=== PATIENT | male | born 1985 | race American Indian/Alaskan Native ===

== ENCOUNTER 2018-09-05 22:40 | Emergency (ER) | payer MEDICARE ==
[~2018-09-05] VITALS: Ht 177.8 cm; Wt 106.0 kg
[~2018-09-05 22:40] MED LIST: DULO-31 PO; LORA1TAB PO; LURA80TA3 PO; OXCA300T16 PO; PANT40TA4 PO
[2018-09-05 22:57] VITALS: BP 147/103
== END 2018-09-05 23:27 ==
LOC: ER 22:40
DX: Z00.8 Encounter for other general examination (principal); G89.29 Other chronic pain; F12.90 Cannabis use, unspecified, uncomplicated; Z79.899 Other long term (current) drug therapy
CPT/HCPCS: 99283

== ENCOUNTER 2022-06-21 17:21 | Emergency (ER) | payer MEDICAID ==
[~2022-06-21] VITALS: Ht 180.3 cm; Wt 96.8 kg
[~2022-06-21 17:21] MED LIST changes: +LURA80TA2 PO; -LURA80TA3 PO; -PANT40TA4 PO; +PANT40TA54 PO
[2022-06-21 18:08] LABS: CLARITY,URINE CLEAR (Clear); GLUCOSE, URINE NEGATIVE (Neg); KETONES,URINE NEGATIVE (Neg); LEUKOCYTE ESTERASE ,URINE NEGATIVE (Neg); NITRITES, URINE NEGATIVE (Neg); OCCULT BLOOD,URINE NEGATIVE (Neg); PROTEIN,URINE TRACE mg/dl (Neg)
[2022-06-21 18:09] LABS: HEMOGLOBIN 17.6 g/dl (14.0-17.9); RED BLOOD COUNT 5.78 X10'6 (4.70-6.10)
[2022-06-21 18:11] LABS: BASOPHILS % (AUTO) 0.3 % (0-1); EOSINOPHILS % (AUTO) 0.1 % (0-6); HEMATOCRIT 51.7 % (42.0-52.0); LYMPHOCYTES # (AUTO) 2.6 X10'3 (1.1-4.8); LYMPHOCYTES % (AUTO) 24.8 % (21-51); MEAN CORPUSCULAR HEMOGLOBIN 30.5 PG (27.0-31.0); MEAN CORPUSCULAR HGB CONC 34.1 g/dL (33.0-36.5); MEAN CORPUSCULAR VOLUME 89.4 FL (78-98); MEAN PLATELET VOLUME 7.1 FL (7.4-10.4); MONOCYTES # (AUTO) 0.8 X10'3 (0-0.9); MONOCYTES % (AUTO) 7.1 % (2-12); NEUTROPHILS # (AUTO) 7.2 X10'3 (1.8-7.7); NEUTROPHILS % (AUTO) 67.7 % (42-75); PLATELET COUNT 293 X10'3 (140-440); WHITE BLOOD COUNT 10.7 X10'3 (4.5-11.0)
[2022-06-21 18:19] LABS: COLOR,URINE DARK YELLOW (Yellow); UA COLLECTION TYPE CLN CATCH MIDSTREAM
[2022-06-21 18:22] LABS: ALANINE AMINOTRANSFERASE 29 U/L (12-78); ALBUMIN 4.3 G/DL (3.4-5.0); ALBUMIN/GLOBULIN RATIO 1.3 (1.1-1.5); ALKALINE PHOSPHATASE 72 IU/L (46-116); ANION GAP 8 (8-16); ASPARTATE AMINO TRANSFERASE 18 U/L (10-37); BILIRUBIN,TOTAL 1.1 MG/DL (0.1-1.0); BLOOD UREA NITROGEN 16 MG/DL (7-18); BUN/CREATININE RATIO 14.7 (5.4-32.0); CALCIUM 9.1 MG/DL (8.5-10.1); CHLORIDE 102 MMOL/L (99-107); CREATININE 1.09 MG/DL (0.60-1.10); GLUCOSE 107 MG/DL (70-104); LIPASE 507 U/L (73-393); POTASSIUM 3.7 MMOL/L (3.5-5.1); SODIUM 141 MMOL/L (135-145); TOTAL PROTEIN 7.6 G/DL (6.4-8.2); eGFR 76 ML/MIN
[2022-06-21 18:23] LABS: BACTERIA,URINE FEW /HPF (Neg); RBC,URINE 0-2 /HPF (0-2); SQUAMOUS EPITHELIAL CELL,UR FEW /LPF (FEW); WBC,URINE 0-4 /HPF (0-4)
[2022-06-21 18:46] LABS: PLATELET ESTIMATE NORMAL; TOTAL CELLS COUNTED 100
[2022-06-21] MEDS ORDERED: normal saline 1000ML IV soln IVB ONE (19:50)
[2022-06-21] MEDS ORDERED: mag hydrox/Alum hydrox/simeth 30ml oral suspension PO ONE (20:05)
[2022-06-21] MEDS ORDERED: acetaminophen 325mg tablet PO ONE (20:05)
[2022-06-21] MEDS ORDERED: LIDOcaine Viscous 15ml cup MM ONE (20:05)
[2022-06-21] MEDS ORDERED: ondansetron/PF 4mg/2ml inj IV ONE (20:05)
[2022-06-21] MEDS ORDERED: ONDA4TAB12 PO (20:50)
[2022-06-21 21:26] VITALS: BP 115/74
== END 2022-06-21 21:36 | disposition home or self-care (01) ==
LOC: ER 17:23
DX: K85.90 Acute pancreatitis without necrosis or infection, unspecified (principal); G89.29 Other chronic pain; F41.9 Anxiety disorder, unspecified; Z90.49 Acquired absence of other specified parts of digestive tract; Z79.899 Other long term (current) drug therapy; Z79.1 Long term (current) use of non-steroidal anti-inflammatories (NSAID)
CPT/HCPCS: 36415; 76700; 80053; 81001; 83690; 85007; 85025; 96374; 99284; J2405; J7030

== ENCOUNTER 2024-08-21 12:31 | Emergency (ER) | payer SELFPAY ==
[~2024-08-21] VITALS: Ht 177.8 cm; Wt 97.7 kg
[~2024-08-21 12:31] MED LIST changes: +ONDA-243 PO
[2024-08-21 13:13] LABS: BASOPHILS % (AUTO) 0.5 % (0-1); EOSINOPHILS % (AUTO) 0.4 % (0-6); HEMATOCRIT 51.4 % (42.0-52.0); LYMPHOCYTES # (AUTO) 1.3 X10'3 (1.1-4.8); LYMPHOCYTES % (AUTO) 15.9 % (21-51); MEAN CORPUSCULAR HEMOGLOBIN 30.1 PG (27.0-31.0); MEAN CORPUSCULAR HGB CONC 33.1 g/dL (33.0-36.5); MEAN PLATELET VOLUME 7.4 FL (7.4-10.4); MONOCYTES # (AUTO) 0.5 X10'3 (0-0.9); MONOCYTES % (AUTO) 5.9 % (2-12); NEUTROPHILS # (AUTO) 6.4 X10'3 (1.8-7.7); NEUTROPHILS % (AUTO) 77.3 % (42-75); PLATELET COUNT 338 X10'3 (140-440); RED BLOOD COUNT 5.65 X10'6 (4.70-6.10); RED CELL DISTRIBUTION WIDTH 12.6 % (11.5-14.5); WHITE BLOOD COUNT 8.3 X10'3 (4.5-11.0)
[2024-08-21 13:23] LABS: ALANINE AMINOTRANSFERASE 38 U/L (12-78); ALBUMIN 4.3 G/DL (3.4-5.0); ALBUMIN/GLOBULIN RATIO 1.4 (1.1-1.5); ALKALINE PHOSPHATASE 69 IU/L (46-116); ANION GAP 6 (8-16); ASPARTATE AMINO TRANSFERASE 25 U/L (10-37); BILIRUBIN,TOTAL 2.2 MG/DL (0.1-1.0); BLOOD UREA NITROGEN 11 MG/DL (7-18); BUN/CREATININE RATIO 12.1 (10.0-20.0); CALCIUM 8.9 MG/DL (8.5-10.1); CHLORIDE 108 MMOL/L (99-107); CREATININE 0.91 MG/DL (0.60-1.10); GLUCOSE 122 MG/DL (70-104); LIPASE 58 U/L (16-77); SODIUM 143 MMOL/L (135-145); TOTAL CARBON DIOXIDE 29.5 MMOL/L (24-32); TOTAL PROTEIN 7.3 G/DL (6.4-8.2); eCRCL 111 ML/MIN; eGFR > 90 ML/MIN
[2024-08-21 13:27] LABS: POTASSIUM 3.7 MMOL/L (3.5-5.1)
[2024-08-21 13:47] VITALS: TEMP 97.5
[2024-08-21 14:00] LABS: BILIRUBIN,URINE NEGATIVE (Neg); CLARITY,URINE SLIGHTLY CLOUDY (Clear); COLOR,URINE AMBER (Yellow); GLUCOSE, URINE NEGATIVE (Neg); KETONES,URINE 15 mg/dl (Neg); LEUKOCYTE ESTERASE ,URINE NEGATIVE (Neg); NITRITES, URINE NEGATIVE (Neg); OCCULT BLOOD,URINE NEGATIVE (Neg); PROTEIN,URINE TRACE mg/dl (Neg)
[2024-08-21 14:05] LABS: UA COLLECTION TYPE CLN CATCH MIDSTREAM
[2024-08-21 14:14] LABS: BACTERIA,URINE NONE SEEN /HPF (Neg); MUCUS STRANDS MANY /LPF (Neg); RBC,URINE NONE SEEN /HPF (0-2); SQUAMOUS EPITHELIAL CELL,UR FEW /LPF (FEW); TRANSITIONAL EPI CELLS,URINE FEW /HPF; WBC,URINE 0-4 /HPF (0-4)
[2024-08-21] MEDS: normal saline 1000ml 1,000 ML IV ONE (14:20)
[2024-08-21] MEDS: proCHLORperazine 10 MG/2 ml inj IV ONE (14:21)
[2024-08-21 14:34] LABS: URINE AMPHETAMINE SCREEN NEGATIVE (Neg); URINE BARBITUATE SCREEN NEGATIVE (Neg); URINE BENZODIAZEPINES SCREEN NEGATIVE (Neg); URINE CANNABINOID SCREEN POSITIVE (Neg); URINE COCAINE SCREEN NEGATIVE (Neg); URINE METHADONE SCREEN NEGATIVE (Neg); URINE OPIATE SCREEN NEGATIVE (Neg); URINE PHENCYCLIDINE SCREEN NEGATIVE (Neg)
[2024-08-21 15:35] VITALS: BP 136/77; PULSE 92; RESP 16; O2SAT 98
== END 2024-08-21 15:39 | disposition home or self-care (01) ==
LOC: ER 12:32
DX: R11.15 Cyclical vomiting syndrome unrelated to migraine (principal); F12.10 Cannabis abuse, uncomplicated; Z79.899 Other long term (current) drug therapy; Z90.49 Acquired absence of other specified parts of digestive tract
CPT/HCPCS: 36415; 80053; 80305; 81001; 83690; 85025; 93005; 96361; 96374; 99284; J0780; J7030